=== PATIENT | female | born 1990 | race Caucasian/White ===

== ENCOUNTER 2017-05-08 08:00 | Outpatient (CLI) | payer MEDICAID, OTHER | END 2017-05-08 08:01 | disposition home or self-care (01) | LOC: LAB.R 08:00 | PROVIDERS: ATTEND Obstetrics & Gynecology | DX: Z36.9 Encounter for antenatal screening, unspecified (principal); Z11.3 Encounter for screening for infections with a predominantly sexual mode of transmission | CPT/HCPCS: 87491; 87591 ==

== ENCOUNTER 2017-06-03 07:44 | Outpatient (CLI) | payer OTHER ==
--- NOTE | 2017-06-03 13:41 | Ultrasound Report ---
OB ULTRASOUND: 06/03/2017 CLINICAL INDICATIONS: anatomy. TECHNIQUE: Real-time scanning was performed with career services representative static images obtained. LAST MENSTRUAL PERIOD --- Clinical Age --- US Age 21 weeks 3 days EFW Hadlock 433 g EFW% Hadlock --- Heart Rate 159 bpm EDC --- US EDC 10/11/2017 BPD Hadlock 21 weeks 0 days; Mean mm 49.4 HC Hadlock 20 weeks 2 days; Mean mm 194.9 AC Hadlock 19 weeks 5 days; Mean mm 168.0 FL Hadlock 21 weeks 2 days; Mean mm 35.7 Presentation cephalic Placental Location anterior Cervical Length 4.2 cm Amniotic Fluid 5.9 cm FINDINGS: There is a single viable intrauterine gestation, in cephalic presentation. heart rate is 159 BPM. The placenta is anterior without evidence of previa. Amniotic fluid volume is subjectively normal, with a deepest pocket of 5.9 cm. By size, the fetus measures 21 weeks 3 days ( uncertain LMP). The following anatomic structures were visualized and appear normal: The intracranial contents, including the ventricles and posterior fossa; the lips and orbits; the spine; the heart, including 4 chamber view and outflow tracts, and diaphragm; the abdominal contents, including the stomach, the bilateral kidneys, and urinary bladder, as well as a normal 3 vessel cord insertion; 4 limbs. Note is made of mild right renal pelviectasis, measuring 4 mm. No free fluid or adnexal lesion is appreciated. IMPRESSION: SINGLE VIABLE INTRAUTERINE GESTATION, MEASURING 21 WEEKS 3 DAYS BY SIZE. MILD RIGHT RENAL PELVIECTASIS. OTHERWISE, NORMAL ANATOMIC SURVEY. TD: 06/03/2017 12:59 [facility]
== END 2017-06-03 07:45 | disposition home or self-care (01) ==
LOC: DI 07:44
PROVIDERS: ATTEND Obstetrics & Gynecology
DX: Z36.9 Encounter for antenatal screening, unspecified (principal)
CPT/HCPCS: 76811

== ENCOUNTER 2017-08-05 08:00 | Outpatient (CLI) | payer OTHER ==
[2017-08-05 19:24] LABS: BILIRUBIN,URINE NEGATIVE (NEGATIVE); GLUCOSE, URINE (UA) NEGATIVE (NEGATIVE); KETONES,URINE (UA) NEGATIVE (NEGATIVE); LEUKOCYTE ESTERASE, URINE TRACE (NEGATIVE); NITRITE,URINE NEGATIVE (NEGATIVE); OCCULT BLOOD,URINE NEGATIVE (NEGATIVE); PH,URINE 6.5 PH (5.0-7.5); PROTEIN,URINE NEGATIVE (NEGATIVE); UROBILINOGEN,URINE 0.2 (NORMAL) E.U./dL (NORMAL)
[2017-08-05 19:48] LABS: BASOPHILS # (AUTO) 0.1 10^3/uL (0.0-0.1); BASOPHILS % (AUTO) 0.5 %; EOSINOPHILS # (AUTO) 0.1 10^3/uL (0.0-0.7); EOSINOPHILS % (AUTO) 1.4 %; LYMPHOCYTES # (AUTO) 1.8 10^3/uL (1.5-3.5); LYMPHOCYTES % (AUTO) 17.1 %; MEAN CORPUSCULAR HEMOGLOBIN 29.1 pg (27.0-31.0); MEAN CORPUSCULAR HGB CONC 34.1 g/dL (32.0-36.0); MEAN CORPUSCULAR VOLUME 85.3 fL (81.0-99.0); MEAN PLATELET VOLUME 7.9 fL (7.9-10.8); MONOCYTES # (AUTO) 0.6 10^3/uL (0.0-1.0); MONOCYTES % (AUTO) 5.7 %; NEUTROPHILS % (AUTO) 75.3 %; PLT - PLATELET COUNT 256 10^3/uL (130-450); RED BLOOD COUNT 3.79 10^6/uL (4.20-5.40); RED CELL DISTRIBUTION WIDTH 13.3 % (12.0-15.0); WHITE BLOOD COUNT 10.7 x10^3/uL (4.8-10.8)
[2017-08-05 19:52] LABS: BACTERIA,URINE None Seen /HPF (None Seen); CLARITY,URINE CLEAR (CLEAR); RBC,URINE None Seen /HPF (0-5); SQUAMOUS EPITHELIAL CELL,UR RARE Squamous (<= Few)
[2017-08-06 10:39] LABS: HEPATITIS B SURFACE ANTIGEN NON-REACTIVE (NON-REACTIVE)
[2017-08-06 16:06] LABS: HIV AG/AB 4TH GEN NON-REACTIVE (NON-REACTIVE)
== END 2017-08-05 08:01 | disposition home or self-care (01) ==
LOC: LAB.N 08:00
PROVIDERS: ATTEND Obstetrics & Gynecology
DX: Z36.9 Encounter for antenatal screening, unspecified (principal); Z11.3 Encounter for screening for infections with a predominantly sexual mode of transmission
CPT/HCPCS: 36415; 81001; 81599; 85025; 86592; 86762; 86850; 86900; 86901; 87340; 87389

== ENCOUNTER 2017-08-07 11:11 | Outpatient (CLI) | payer OTHER ==
[2017-08-07 12:56] LABS: BILIRUBIN,URINE NEGATIVE (NEGATIVE); GLUCOSE, URINE (UA) NEGATIVE (NEGATIVE); KETONES,URINE (UA) TRACE mg/dL (NEGATIVE); LEUKOCYTE ESTERASE, URINE TRACE (NEGATIVE); NITRITE,URINE NEGATIVE (NEGATIVE); OCCULT BLOOD,URINE NEGATIVE (NEGATIVE); PH,URINE 7.5 PH (5.0-7.5); PROTEIN,URINE NEGATIVE (NEGATIVE); UROBILINOGEN,URINE 0.2 (NORMAL) E.U./dL (NORMAL)
[2017-08-07 12:59] LABS: CLARITY,URINE CLEAR (CLEAR)
[2017-08-07 13:15] LABS: RBC,URINE 0-5 /HPF (0-5); SQUAMOUS EPITHELIAL CELL,UR FEW Squamous (<= Few)
[2017-08-07 13:16] LABS: BACTERIA,URINE Rare /HPF (None Seen)
--- NOTE | 2017-08-07 13:39 | Ultrasound Report ---
OB FOLLOWUP: 08/07/2017 CLINICAL INDICATION: Check growth, history of labor. TECHNIQUE: Real-time scanning was performed with traffic workforce representative static images obtained. LAST MENSTRUAL PERIOD: 01/04/2017 Clinical Age: 30 weeks 5 days US Age: 30 weeks 0 days EFW Hadlock: 1429 grams EFW% Hadlock: -- Heart Rate: 130 bpm EDC: 10/11/2017 US EDC: 10/16/2017 BPD Hadlock: 30 weeks 6 days; Mean mm 77 HC Hadlock: 31 weeks 0 days; Mean mm 283 AC Hadlock: 30 weeks 2 days; Mean mm 261 FL Hadlock: 28 weeks 0 days; Mean mm 53 Presentation: cephalic Placental Location: anterior Cervical Length: 4.1 cm Amniotic Fluid: DAGMAR 19.2 cm; MVP 6.4 cm FINDINGS: There is a single viable intrauterine gestation, in cephalic presentation. heart rate is 130 BPM. The placenta is anterior, without evidence of previa. Amniotic fluid volume is normal, with an DAGMAR 19.2. By size, the fetus measures 30 weeks 0 days (30 weeks 5 days by previous sonogram). Estimated weight by Hadlock method is 1429 grams. The cervix measures 4.1 cm, and is closed. IMPRESSION: SINGLE VIABLE INTRAUTERINE GESTATION, WITH EXPECTED GROWTH FROM PREVIOUS SONOGRAM. NORMAL DAGMAR. TD: 08/07/2017 13:00 MTDD
== END 2017-08-07 11:12 | disposition home or self-care (01) ==
LOC: DI 11:11
PROVIDERS: ATTEND Obstetrics & Gynecology
DX: Z36.2 Encounter for other antenatal screening follow-up (principal); R82.99 Other abnormal findings in urine; O60.00 Preterm labor without delivery, unspecified trimester; Z11.3 Encounter for screening for infections with a predominantly sexual mode of transmission; Z36.89 Encounter for other specified antenatal screening
CPT/HCPCS: 76816; 81001; 82731; 87081; 87086; 87491; 87591

== ENCOUNTER 2017-08-07 16:01 | Outpatient (CLI) | payer OTHER | END 2017-08-07 16:02 | disposition home or self-care (01) | LOC: LAB.R 16:01 | PROVIDERS: ATTEND Obstetrics & Gynecology | DX: O60.00 Preterm labor without delivery, unspecified trimester (principal); Z11.3 Encounter for screening for infections with a predominantly sexual mode of transmission; Z36.89 Encounter for other specified antenatal screening | CPT/HCPCS: 82731; 87081; 87491; 87591 ==

== ENCOUNTER 2017-08-28 20:02 | Outpatient (CLI) | payer OTHER ==
[2017-08-28 20:40] LABS: BILIRUBIN,URINE NEGATIVE (NEGATIVE); GLUCOSE, URINE (UA) NEGATIVE (NEGATIVE); KETONES,URINE (UA) 40 mg/dL (NEGATIVE); LEUKOCYTE ESTERASE, URINE SMALL (NEGATIVE); NITRITE,URINE NEGATIVE (NEGATIVE); OCCULT BLOOD,URINE TRACE-INTA (NEGATIVE); PH,URINE 6.5 PH (5.0-7.5); PROTEIN,URINE NEGATIVE (NEGATIVE); UROBILINOGEN,URINE 0.2 (NORMAL) E.U./dL (NORMAL)
[2017-08-28 20:43] LABS: CLARITY,URINE CLEAR (CLEAR)
[2017-08-28 20:46] LABS: BACTERIA,URINE Many /HPF (None Seen); RBC,URINE 0-5 /HPF (0-5); SQUAMOUS EPITHELIAL CELL,UR MANY Squamous (<= Few)
[2017-08-28] MEDS ORDERED: LACTATED RINGERS 1,000 ML IV ONE (21:04)
[2017-08-28] MEDS ORDERED: TERBUTALINE 1 MG/ML VIAL SUBQ SCH (21:05)
--- NOTE | 2017-08-28 21:06 | PROVIDER PROGRESS NOTE ---
Subjective - Prog Note Date Prog Note Date: 08/28/17 Prog Note Time: 21:00 - Subjective Subjective: Anthony is a 27-year-old 3 para 04/28/2000 woman at 33 weeks 6 days gestation who reports regular and steadily mounting contractions beginning at 1600 this afternoon. 07 August exam 1 cm dilation and effacement 25-30% -2 station She is uncertain if there is leaking membranes but she reports no discharge. She has no fevers chills or UTI symptoms. In 2015 she had a 34 week delivery of a living female infant in [place]. Blood type O+ antibody negative; RPR nonreactive rubella reactive hepatitis B surface antigen negative HIV negative baseline urinalysis -07 August GBS negative GC chlamydia - Objective - Vital Signs/Intake & Output Vital Signs: Vital Signs x48h Temp Pulse Resp BP Pulse Ox 08/28/17 20:22 98.1 F 99 18 118/81 H 99 - Lab Results Other Labs: Lab Results x24hrs 08/28/17 Range/Units 20:15 Urine Color YELLOW Urine Clarity CLEAR (CLEAR) Urine pH 6.5 (5.0-7.5) PH Ur Specific [place] 1.020 (1.002-1.030) Urine Protein NEGATIVE (NEGATIVE) mg/dL Urine Glucose (UA) NEGATIVE (NEGATIVE) mg/dL Urine Ketones 40 H (NEGATIVE) mg/dL Urine Occult Blood TRACE-INTA (NEGATIVE) Urine Nitrite NEGATIVE (NEGATIVE) Urine Bilirubin NEGATIVE (NEGATIVE) Urine Urobilinogen 0.2 (NORMAL) (NORMAL) E.U./dL Ur Leukocyte Esterase SMALL H (NEGATIVE) Urine RBC 0-5 (0-5) /HPF Urine WBC 11-25 H (0-5) /HPF Ur Squamous Epith Cells MANY Squamous H (<= Few) Urine Bacteria Many H (None Seen) /HPF Urine Culture Comments NOT INDICATED Exam - Vital Signs Vital Signs: Vital Signs x48h Temp Pulse Resp BP Pulse Ox 08/28/17 20:22 98.1 F 99 18 118/81 H 99 - Physical Exam General Appearance: positive: No acute distress, Anxious Eyes Bilateral: positive: Normal inspection, No scleral icterus ENT: positive: Dry mucous membranes Neck: positive: Nml inspection Abdomen: positive: Non-tender, No organomegaly, No distention, Other (Uterus normal resting tone very mild Q3 minute contractions external monitor shows every 3 minute contractions 1 strip) Skin: positive: Color nml Extremities: positive: No pedal edema Neurologic/Psychiatric: positive: Oriented x3, CN's nml (2-12), Motor nml, Sensation nml, Mood/affect nml Assess/Plan - Additional Planning My Orders: My Active Orders 08/28/17 RUPTURE OF MEMBRANES PLUS Stat 08/28/17 20:40 BV/VAGINITIS PANEL DNA PROBE [REFLAB] Routine 08/28/17 21:04 Lactated Ringers [Lr] 1,000 ml IV ONCE 08/28/17 21:05 Terbutaline 0.25 mg SUBQ ONCE ONE Assessment/Plan - Assessment/Plan Assessment: Patient is a 33 weeks and 6 days gestation with regular mounting in intensity contractions. There is no uterine tenderness or symptoms suggestive of infection. baseline heartbeat is normal not tachycardic. Delivery of pregnancies under 34 weeks of gestation is not permitted unless unavoidable at [facility][1]. Given the cervical exam early delivery i.e. within the next day is not likely however she may deliver before 36 weeks. She is a candidate for steroids Plan: Plan * Begin aggressive Tocolysis with fluid bolus and subcu terbutaline 0.25 mg every 20 minutes for 3 doses max. * May consider nifedipine later. * Betamethasone 12 mg now and in 24 hours. * If tocolyse this is unsuccessful will transfer to [facility] for delivery. * If Toca lysis is successful discharge to home with repeat beta L Methasone tomorrow evening
[2017-08-28] MEDS ORDERED: BETAMETHASONE 30 MG/5 ML VIAL ONE (21:18)
[2017-08-28] MEDS ORDERED: SODIUM CHLORIDE FLUSH 0.9% 10 ML SYRINGE ONE (21:20)
[2017-08-28] MEDS ORDERED: BETAMETHASONE 30 MG/5 ML VIAL IM ONE (21:30)
[2017-08-28 22:28] LABS: BASOPHILS # (AUTO) 0.1 10^3/uL (0.0-0.1); BASOPHILS % (AUTO) 0.6 %; EOSINOPHILS # (AUTO) 0.1 10^3/uL (0.0-0.7); EOSINOPHILS % (AUTO) 0.9 %; HGB - HEMOGLOBIN 11.1 g/dL (12.0-16.0); LYMPHOCYTES # (AUTO) 2.2 10^3/uL (1.5-3.5); LYMPHOCYTES % (AUTO) 19.7 %; MEAN CORPUSCULAR HEMOGLOBIN 28.5 pg (27.0-31.0); MEAN CORPUSCULAR HGB CONC 33.4 g/dL (32.0-36.0); MEAN CORPUSCULAR VOLUME 85.1 fL (81.0-99.0); MEAN PLATELET VOLUME 7.9 fL (7.9-10.8); MONOCYTES # (AUTO) 0.9 10^3/uL (0.0-1.0); MONOCYTES % (AUTO) 7.6 %; NEUTROPHILS % (AUTO) 71.2 %; PLT - PLATELET COUNT 248 10^3/uL (130-450); RED CELL DISTRIBUTION WIDTH 12.9 % (12.0-15.0); WHITE BLOOD COUNT 11.3 x10^3/uL (4.8-10.8)
[2017-08-28] MEDS ORDERED: MORPHINE 10 MG/ML VIAL IM ONE (22:37)
[2017-08-28] MEDS ORDERED: PROMETHAZINE 25 MG/1 ML VIAL IM ONE (22:38)
[2017-08-28 22:49] LABS: RUPTURE OF MEMBRANES PLUS NEGATIVE (NEGATIVE)
[2017-08-28] MEDS ORDERED: TERBUTALINE 1 MG/ML VIAL SUBQ ONE (22:49)
[2017-08-29 00:21] VITALS: BP 111/67
== END 2017-08-28 23:25 | disposition home or self-care (01) ==
LOC: WFO 20:02 → FBP 20:04 → WFO 23:25
PROVIDERS: ATTEND Obstetrics & Gynecology
DX: O09.213 Supervision of pregnancy with history of pre-term labor, third trimester (principal); Z3A.33 33 weeks gestation of pregnancy; O47.03 False labor before 37 completed weeks of gestation, third trimester
CPT/HCPCS: 81001; 84112; 85025; 87480; 87510; 87660; 96372; 99214; J7120; 87086

== ENCOUNTER 2017-08-29 20:44 | Outpatient (CLI) | payer OTHER ==
[2017-08-29 21:11] VITALS: BP 108/72
[2017-08-29] MEDS ORDERED: BETAMETHASONE 30 MG/5 ML VIAL IM SCH (21:30)
== END 2017-08-29 21:55 | disposition home or self-care (01) ==
LOC: WFO 20:44 → FBP 20:56 → WFO 21:55
PROVIDERS: ATTEND Obstetrics & Gynecology
DX: O36.8130 Decreased fetal movements, third trimester, not applicable or unspecified (principal); Z3A.34 34 weeks gestation of pregnancy; O47.03 False labor before 37 completed weeks of gestation, third trimester
CPT/HCPCS: 96372; 99212

== ENCOUNTER 2017-09-01 17:14 | Outpatient (CLI) | payer OTHER ==
[2017-09-01 17:37] VITALS: BP 122/89
[2017-09-01 17:39] LABS: BILIRUBIN,URINE NEGATIVE (NEGATIVE); GLUCOSE, URINE (UA) NEGATIVE (NEGATIVE); KETONES,URINE (UA) TRACE mg/dL (NEGATIVE); LEUKOCYTE ESTERASE, URINE TRACE (NEGATIVE); NITRITE,URINE NEGATIVE (NEGATIVE); OCCULT BLOOD,URINE NEGATIVE (NEGATIVE); PH,URINE 6.5 PH (5.0-7.5); PROTEIN,URINE NEGATIVE (NEGATIVE); UROBILINOGEN,URINE 0.2 (NORMAL) E.U./dL (NORMAL)
[2017-09-01 17:58] LABS: BACTERIA,URINE Moderate /HPF (None Seen); CLARITY,URINE CLEAR (CLEAR); RBC,URINE 0-5 /HPF (0-5); SQUAMOUS EPITHELIAL CELL,UR MANY Squamous (<= Few)
[2017-09-01] MEDS ORDERED: TERBUTALINE 1 MG/ML VIAL SUBQ ONE (18:01)
[2017-09-01] MEDS ORDERED: LACTATED RINGERS 1,000 ML IV ONE ×2 (18:02→18:17)
[2017-09-01] MEDS ORDERED: SODIUM CHLORIDE FLUSH 0.9% 10 ML SYRINGE ONE (18:17)
--- NOTE | 2017-09-01 18:56 | PROVIDER PROGRESS NOTE ---
Subjective - Prog Note Date Prog Note Date: 09/01/17 Prog Note Time: 19:00 - Subjective Subjective: Anthony is a 27-year-old 3 para 0202 woman at 34 weeks and 2 days gestation who presents complaining of regular contractions that began at 0930 today. The contractions progressed to every 5 minutes by noon and then every 3 minutes by 1500. She does not suspect leaking membranes. She reports good movement without signs or symptoms suggestive of preeclampsia. She reports no pelvic pressure. She has no fevers, chills, UTI symptoms or vaginal foul discharge. She had a similar episode on 3 M transfer text that was successfully tocolysed with terbutaline and IV fluids. She has a history of births at 34 and 36 weeks gestation. 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 Objective - Vital Signs/Intake & Output Vital Signs: Vital Signs x48h Temp Pulse Resp BP Pulse Ox 09/01/17 17:34 98.8 F 107 H 16 122/89 H 99 - Lab Results Other Labs: Lab Results x24hrs 09/01/17 Range/Units 17:30 Urine Color YELLOW Urine Clarity CLEAR (CLEAR) Urine pH 6.5 (5.0-7.5) PH Ur Specific [place] <=1.005 (1.002-1.030) Urine Protein NEGATIVE (NEGATIVE) mg/dL Urine Glucose (UA) NEGATIVE (NEGATIVE) mg/dL Urine Ketones TRACE (NEGATIVE) mg/dL Urine Occult Blood NEGATIVE (NEGATIVE) Urine Nitrite NEGATIVE (NEGATIVE) Urine Bilirubin NEGATIVE (NEGATIVE) Urine Urobilinogen 0.2 (NORMAL) (NORMAL) E.U./dL Ur Leukocyte Esterase TRACE H (NEGATIVE) Urine RBC 0-5 (0-5) /HPF Urine WBC 6-10 H (0-5) /HPF Ur Squamous Epith Cells MANY Squamous H (<= Few) Urine Bacteria Moderate H (None Seen) /HPF Urine Culture Comments NOT INDICATED Exam - Exam Vital Signs: Vital Signs (72 hours) 09/01/17 17:34 Temperature 98.8 F Heart Rate [ 107 H Radial] Respiratory 16 Rate Blood Pressure 122/89 H [Left Brachial artery] O2 Saturation 99 General: Alert, Oriented x3 HEENT: Mucous membr. moist/pink Abdomen: Normal bowel sounds, Other (Originally q. 5 minutes mild contractions; now uterus quiesced sent. External monitor category 1 140s moderate variability no D cells and no contractions. Cervical exam 1 cm 25% effaced unengaged same as baseline exam) Extremities: No edema Neurological: Normal speech Psych/Mental Status: Mental status NL, Mood NL Assessment/Plan - Assessment/Plan Assessment: Patient presented with uterine contractions without evident cervical change compared to her 3 august exam. fibronectin is negative. Her continued bouts of contractions is a concern. Plan: PLAN * Will finish IV bolus of 1000 cc. * One dose of terbutaline given second dose does not seem necessary. * Patient is already received one course of steroids. * She would probably benefit by a work excuse. Work excuse was written. * Patient is hydrating drinking several bottles of water per day. * Urinalysis changes probably reflect contamination therefore antibiotics were not prescribed * She will see Dr. Padilla tomorrow.
== END 2017-09-01 19:45 | disposition home or self-care (01) ==
LOC: WFO 17:14 → FBP 17:16 → WFO 19:45
PROVIDERS: ATTEND Obstetrics & Gynecology
DX: O09.213 Supervision of pregnancy with history of pre-term labor, third trimester (principal); O47.03 False labor before 37 completed weeks of gestation, third trimester; Z3A.34 34 weeks gestation of pregnancy
CPT/HCPCS: 81001; 82731; 96372; 99214; J7120; 87086

== ENCOUNTER 2017-09-11 15:26 | Outpatient (CLI) | payer OTHER | END 2017-09-11 23:59 | LOC: LAB.R 15:26 | PROVIDERS: ATTEND Obstetrics & Gynecology | DX: N89.8 Other specified noninflammatory disorders of vagina (principal) | CPT/HCPCS: 87480; 87510; 87660 ==

== ENCOUNTER 2017-09-13 16:20 | Outpatient (CLI) | payer OTHER ==
[2017-09-13 16:33] VITALS: BP 131/94
[2017-09-13] MEDS ORDERED: TERBUTALINE 1 MG/ML VIAL SUBQ SCH (17:12)
== END 2017-09-13 18:05 | disposition home or self-care (01) ==
LOC: WFO 16:20 → FBP 16:21 → WFO 18:05
PROVIDERS: ATTEND Obstetrics & Gynecology
DX: O47.03 False labor before 37 completed weeks of gestation, third trimester (principal); Z3A.36 36 weeks gestation of pregnancy
CPT/HCPCS: 96372; 99213

== ENCOUNTER 2017-09-14 11:48 | Outpatient (CLI) | payer OTHER | END 2017-09-14 11:49 | disposition critical access hospital (66) | LOC: EMS 11:48 | PROVIDERS: ATTEND Surgery | DX: O99.89 Other specified diseases and conditions complicating pregnancy, childbirth and the puerperium (principal) | CPT/HCPCS: A0425; A0427 ==

== ENCOUNTER 2017-09-14 12:09 | Inpatient (IN) | payer OTHER ==
[2017-09-14] MEDS ORDERED: OXYTOCIN/SODIUM CHLORIDE 500 ML IV ONE (12:27)
[2017-09-14] MEDS ORDERED: LACTATED RINGERS 1,000 ML IV ONE (12:27)
[2017-09-14] MEDS ORDERED: SODIUM CHLORIDE FLUSH 0.9% 10 ML SYRINGE ONE (12:28)
[2017-09-14] MEDS ORDERED: fent/BUPIV 2 MCG/0.125% 250 ML EP ONE (13:01)
[2017-09-14] MEDS ORDERED: METHYLERGONOVINE 0.2 MG/ML AMP ONE (13:03)
[2017-09-14] MEDS ORDERED: LIDOCAINE 1% 50 ML MDV ONE (13:03)
[2017-09-14 13:09] LABS: BASOPHILS # (AUTO) 0.1 10^3/uL (0.0-0.1); BASOPHILS % (AUTO) 0.5 %; EOSINOPHILS # (AUTO) 0.1 10^3/uL (0.0-0.7); EOSINOPHILS % (AUTO) 0.6 %; HGB - HEMOGLOBIN 11.4 g/dL (12.0-16.0); MEAN CORPUSCULAR HEMOGLOBIN 29.3 pg (27.0-31.0); MEAN CORPUSCULAR HGB CONC 34.7 g/dL (32.0-36.0); MEAN CORPUSCULAR VOLUME 84.5 fL (81.0-99.0); MEAN PLATELET VOLUME 7.3 fL (7.9-10.8); MONOCYTES # (AUTO) 0.7 10^3/uL (0.0-1.0); MONOCYTES % (AUTO) 6.9 %; NEUTROPHILS # (AUTO) 7.6 10^3/uL (1.5-6.6); PLT - PLATELET COUNT 240 10^3/uL (130-450); RED BLOOD COUNT 3.88 10^6/uL (4.20-5.40); RED CELL DISTRIBUTION WIDTH 12.7 % (12.0-15.0); WHITE BLOOD COUNT 10.4 x10^3/uL (4.8-10.8)
--- NOTE | 2017-09-14 14:15 | HISTORY & PHYSICAL EXAMINATION ---
Admit History - Instructions [place]/Slash: -Left hand click circles element as positive or present. -Right hand click slashes element as negative or not present. - Visit Reason Visit Reason: Contractions (Pt has had contractions thruout this pregnency with multipul visits to L&D. She has recieved betamethazone for lung maturity. Pt was in last night wiht contractions), Membranes rupture (Pt SROM at 1130 this AM) - : 3 Parity: 1 Premature: 1 Ectopic: 0 : 0 Care: positive: [facility] (Pt has had 9 visits. corse was complicated with contraction. she has had one delivery at 34 weeks. Pt was seen last night with contractions. recieved) Risk/History: positive: labor <37 weeks (multipul visits to L& D for contractions. recieved terbutaline.) Complications This : positive: Other (contractions) Smoking Status: Current every day smoker - Mother's Labs Mother's Blood Type: positive: O Mother's RH: positive: Positive GBS: positive: Group B Step Negative Rubella Status: positive: Immune Meds/Allgy - Home Medications Home Medications: Ambulatory Orders Medication Instructions Recorded Confirmed HYDROcod/ACETAM 5/325 [[place] 5/325] 1 - 2 ea PO Q6H PRN #15 tablet 05/21/15 - Allergies Allergies/Adverse Reactions: Allergies Allergy/AdvReac Type Severity Reaction Status Date / Time venom-honey bee Allergy Severe Respiratory Verified 10/14/12 17:53 amoxicillin trihydrate * Allergy Intermediate Hives Verified 10/14/12 17:44 [From Augmentin] Penicillins Allergy Intermediate Hives Verified 10/31/12 11:26 potassium clavulanate * Allergy Intermediate Hives Verified 10/14/12 17:44 [From Augmentin] honey AdvReac Severe Respiratory Verified 10/14/12 17:54 tramadol AdvReac Intermediate Nausea Verified 10/14/12 17:47 Review of Systems - Constitutional Constitutional: denies: Fatigue, Fever - Eyes Eyes: denies: Pain Physical - Abdominal Exam Vital Signs: Temp Pulse Resp BP Pulse Ox 36.6 C 73 18 114/81 H 100 09/14/17 12:25 09/14/17 12:25 09/14/17 12:25 09/14/17 12:25 09/14/17 12:25 Contraction Frequency (min/apart): 3 Contraction Intensity: positive: Moderate to strong - Monitoring Heart Rate Baseline: 140 with early decelerations to the 60 Strip Review: positive: Category II - Presentation Presentation: positive: Vertex - Vaginal Exam Membranes: positive: Membranes ruptured Dilation (in cm): 7 Effacement (%): 90% Station: positive: 0 Cervical Position: positive: Midposition - Speculum Exam Speculum Exam Performed: positive: No Findings: positive: Gross leak Plan for Labor - Plan For Labor I expect patient to be DC'd or transferred within 96 hours.: No Plan for Labor: Pt is a 27 yo 36.1 by early exam and US. SROM with light Mech. Actively laboring with Hx of rapid delivery. Peds contacted and will be here for delivery. Pt requests an Epidural. Anticipate vaginal delivery.
--- NOTE | 2017-09-14 14:31 | DELIVERY NOTE ---
Delivery Note - Labor Labor: positive: Spontaneous - Delivery Method Delivery Method: positive: Spontaneous vaginal delivery - Presentation Presentation: positive: Vertex, OA - occiput anterior - Nuchal Cord Nuchal Cord: positive: None (cord tightly wounded) - Anesthetic Anesthetic Type: Anesthetic: positive: Bupivicaine - 0.25% plain - Amniotic Fluid Description Amniotic Fluid Description: positive: Light meconium - Episiotomy Type Episiotomy Type: positive: None - Laceration Laceration: positive: None - Delivery Outcome Delivery Outcome: positive: Livebirth (live female, Apgars 8/9, Weight 4 lb 14 oz.) - [place]: positive: Placed in direct skin contact with mother, Bulb syringe, Stimulated, Warmed, [place] used sex: positive: Female - Cord Cord: positive: 3 vessels - Placenta Placenta: positive: Intact, Spontaneous (circumvallate Placenta, Tightly wound cord.) - Estimated Blood Loss Estimated Blood Loss (in cc): 100 - Post Delivery Events Post Delivery Events: positive: No post delivery events - Delivery Comments (Free Text/Narrative) Delivery Comments (Free Text/Narrative): while at home pt SROM at about 1130. contractions picked up very soon there after. Pt [facility] the [facility] at 1205. initial check was cm. with a hx of rapid deliveries physician was summoned Pt progressed to 8-9 cm. per pt request an epidural was placed. Pt relaxed and reached complete at 1335. a short second stage of 5 min with deilvery at 1340. Live female OA delivered over an intact perneum. Apgars of 8/9 weight if 4lb 13.7 oz. third stage of 5 min led to a delivery of an intact circummvalate palcenta. total EBL 100 ml.
[2017-09-14] MEDS ORDERED: HYDROCORTISONE/PRAMOXINE 10 GM PR PRN (15:00)
[2017-09-14] MEDS ORDERED: diphenhydrAMINE 25 MG CAPSULE PO PRN (15:00)
[2017-09-14] MEDS ORDERED: OXYTOCIN/SODIUM CHLORIDE 250 ML IV ONE (15:00)
[2017-09-14] MEDS ORDERED: HYDROCORTISONE 1% CREAM 28 GM TUBE PR PRN (15:00)
[2017-09-14] MEDS ORDERED: ONDANSETRON 4 MG/2 ML VIAL IVP PRN (15:00)
[2017-09-14] MEDS ORDERED: WITCH HAZEL/GLYCERIN 1 EACH MED..PAD TOP PRN (15:00)
[2017-09-14] MEDS: ACETAMINOPHEN 500 MG TABLET PO SCH (15:57)
[2017-09-14] MEDS: IBUPROFEN 600 MG TABLET PO SCH ×2 (15:57→22:05)
[2017-09-14] MEDS: oxyCODONE 5 MG TABLET PO PRN (20:13)
[2017-09-14] MEDS: DOCUSATE SODIUM 100 MG CAPSULE PO SCH (21:34)
[2017-09-15] MEDS: ACETAMINOPHEN 500 MG TABLET PO SCH ×4 (00:01→23:59)
[2017-09-15] MEDS: IBUPROFEN 600 MG TABLET PO SCH ×4 (04:00→22:21)
[2017-09-15] MEDS: oxyCODONE 5 MG TABLET PO PRN ×4 (05:01→20:27)
[2017-09-15] MEDS: LACTATED RINGERS 1,000 ML IV SCH ×2 (05:43→16:30)
[2017-09-15] MEDS: SIMETHICONE CHEW 80 MG TABLET PO SCH ×4 (05:45→16:27)
--- NOTE | 2017-09-15 08:17 | PROVIDER PROGRESS NOTE ---
Subjective - Prog Note Date Prog Note Date: 09/15/17 Prog Note Time: 08:15 - Subjective Pt reports feeling: Improved (Pain 0-6. meds working. notes adiquit pain control) Objective - Vital Signs/Intake & Output Reviewed Vital Signs: Yes Vital Signs: Vital Signs x48h Temp Pulse Resp BP Pulse Ox 09/15/17 08:07 36.7 C 87 20 100 09/15/17 03:35 36.7 C 85 18 117/75 Intake & Output: Intake & Output 09/12/17 09/13/17 09/14/17 09/15/17 23:59 23:59 23:59 23:59 Intake Total 1300 500 Output Total 500 Balance 800 500 - Objective General Appearance: positive: No acute distress, Alert Respiratory: positive: Chest non-tender, No respiratory distress, Breath sounds nml Cardiovascular: positive: Regular rate & rhythm, No murmur, No gallop Abdomen: positive: Non-tender, No organomegaly, Mass (U-2) Skin: positive: Color nml, No rash, Warm Extremities: negative: Calf tenderness, Susan's sign/cords Neurologic/Psychiatric: positive: Oriented x3 - Lab Results Fish Bones: 09/14/17 13:00 Other Labs: Lab Results x24hrs 09/14/17 Range/Units 13:00 WBC 10.4 (4.8-10.8) x10^3/uL RBC 3.88 L (4.20-5.40) 10^6/uL Hgb 11.4 L (12.0-16.0) g/dL Hct 32.8 L (37.0-47.0) % MCV 84.5 (81.0-99.0) fL MCH 29.3 (27.0-31.0) pg MCHC 34.7 (32.0-36.0) g/dL RDW 12.7 (12.0-15.0) % Plt Count 240 (130-450) 10^3/uL MPV 7.3 L (7.9-10.8) fL Neut # 7.6 H (1.5-6.6) 10^3/uL Lymph # 2.0 (1.5-3.5) 10^3/uL [place] # 0.7 (0.0-1.0) 10^3/uL Eos # 0.1 (0.0-0.7) 10^3/uL Baso # 0.1 (0.0-0.1) 10^3/uL Absolute Nucleated RBC 0.00 x10^3/uL Nucleated RBC % 0.0 /100WBC Assessment/Plan - Problem List (1) (spontaneous vaginal delivery) Impression: Pt is progressing well. baby may need to stay.
[2017-09-15] MEDS: DOCUSATE SODIUM 100 MG CAPSULE PO SCH ×2 (09:01→20:27)
[2017-09-16] MEDS: IBUPROFEN 600 MG TABLET PO SCH ×2 (03:22→09:16)
[2017-09-16] MEDS: oxyCODONE 5 MG TABLET PO PRN ×2 (05:51→09:49)
--- NOTE | 2017-09-16 07:57 | PROVIDER PROGRESS NOTE ---
Subjective - Prog Note Date Prog Note Date: 09/16/17 Prog Note Time: 07:55 - Subjective Pt reports feeling: Improved (Pt is doing very well. breast feeding. requesting Tubal ligation. pain / pt notes adiquit pain control.) Objective - Vital Signs/Intake & Output Reviewed Vital Signs: Yes Vital Signs: Vital Signs x48h Temp Pulse Resp BP 09/16/17 05:44 36.5 C 52 L 16 118/85 H Intake & Output: Intake & Output 09/13/17 09/14/17 09/15/17 09/16/17 23:59 23:59 23:59 23:59 Intake Total 1300 500 Output Total 500 Balance 800 500 - Objective General Appearance: positive: No acute distress, Alert Respiratory: positive: Chest non-tender, No respiratory distress, Breath sounds nml Cardiovascular: positive: Regular rate & rhythm, No murmur, No gallop Abdomen: positive: Non-tender, No organomegaly, Nml bowel sounds, Mass (U-3) Extremities: negative: Calf tenderness, Susan's sign/cords - Lab Results Fish Bones: 09/14/17 13:00 Assessment/Plan - Problem List (1) (spontaneous vaginal delivery) Impression: Pt is doing well. baby is on bili lights. Discharge to home. Discharge medication motrin 600 mg oxycodone 5 mg. # 10. Reviewed contraception. Pt wants Tubal ligation breast feeding and mastitis.
[2017-09-16] MEDS: ACETAMINOPHEN 500 MG TABLET PO SCH (08:00)
[2017-09-16] MEDS: SIMETHICONE CHEW 80 MG TABLET PO SCH (08:02)
--- NOTE | 2017-09-16 08:02 | Discharge Plan ---
Discharge Plan Disposition: 01 Home, Self Care Condition: Good Diet: Regular Activity Restrictions: pelvic rest 6 wks Shower Restrictions: No Driving Restrictions: No (not while taking oxycodone) No Smoking: If you smoke, Please STOP! Call for help. Follow-up with: Nils Arellano MD [Provider Admit Priv/Credential] -
[2017-09-16 08:10] VITALS: BP 127/83
[2017-09-16] MEDS: DOCUSATE SODIUM 100 MG CAPSULE PO SCH (10:25)
--- NOTE | 2017-09-16 11:52 | Labor Flowsheet ---
Labor Flowsheet Datetime Report Generated by CPN: 09/16/2017 11:52 Datetime: 09/16/2017 07:51 VITAL SIGNS NBP Sys/Tracee/Mean (mmHg): 127 : 83 : 92 Pulse: 61 LaborFlag: Labor Datetime: 09/14/2017 13:54 SpO2 (%): 100 Datetime: 09/14/2017 13:40 UTERINE ACTIVITY Monitor Mode: External Frequency (min): 2-3 Quality: Strong Duration (sec): 40-60 Pattern: Normal: <= 5 Contractions in 10 Minutes Resting Tone (Palpate): Relaxed Contraction Comments: strong urge to push ASSESSMENT A Monitor Mode: Internal Scalp Electrode FHR Baseline Rate : 130 Variability: Moderate 6-25 bpm Accelerations: None Decelerations: Early Category: Category I Comments: FHR decels down to the 60-90s. pt started to push and delivered within 5 mins in second s tage. Datetime: 09/14/2017 13:38 STAGE 2 Pushing: No Urge to Push Pushing Position: Pushing with Contractions Pushing Progress: Descent with Pushing Datetime: 09/14/2017 13:35 VAGINAL EXAM Dilatation (cm): 10.0 Effacement (%): 100 Station: 2 Exam by: dr rm Vaginal Bleeding: Normal Show Cervix, Consistency: Soft Cervix, Position: Anterior Patient Care Comments: pt feeling more pressure Datetime: 09/14/2017 13:30 Monitor Interventions for UA: Anon Raices Adjusted FHR Baseline Changes: No Baseline Change Actions for Decelerations: Oxygen Applied; IV Bolus; Sterile Vaginal Exam; Provider Notified Datetime: 09/14/2017 13:17 Monitor Interventions for FHR: FSE Applied PATIENT CARE Oxygen Amount (LPM): 10 Oxygen Method: Non-Rebreather Datetime: 09/14/2017 13:14 Epidural Procedure: Loading Dose Epidural Procedure Other: Pump Started Datetime: 09/14/2017 13:01 PROCEDURE TIME OUT Procedure Verify: Correct Patient Identity; Correct Side and Site are Marked; Agreement on Procedur e to be Done; Correct Patient Position; Safety Precautions Based on Patient History or Medication Use ANESTHESIA Epidural Positioning: Sitting Datetime: 09/14/2017 12:51 COMMUNICATION Communication Comments: dr ambar smith
== END 2017-09-16 11:51 | disposition home or self-care (01) | DRG 775 ==
LOC: WFO 12:09 → FBP 12:11 → WFO 12:40 → FBP 12:41
PROVIDERS: ADMIT Obstetrics & Gynecology; ATTEND Obstetrics & Gynecology
PROC: 10E0XZZ Delivery of Products of Conception, External Approach (ICD-10-PCS; principal; 2017-09-14)
DX: O60.14X0 Preterm labor third trimester with preterm delivery third trimester, not applicable or unspecified (principal); Z3A.36 36 weeks gestation of pregnancy; Z37.0 Single live birth; O77.0 Labor and delivery complicated by meconium in amniotic fluid; O99.334 Smoking (tobacco) complicating childbirth; F17.200 Nicotine dependence, unspecified, uncomplicated; O43.113 Circumvallate placenta, third trimester; O69.89X0 Labor and delivery complicated by other cord complications, not applicable or unspecified; O62.3 Precipitate labor
CPT/HCPCS: 36415; 85025; 99212

== ENCOUNTER 2017-11-04 10:00 | Outpatient (CLI) | payer OTHER ==
[2017-11-04 13:34] LABS: BILIRUBIN,URINE NEGATIVE (NEGATIVE); GLUCOSE, URINE (UA) NEGATIVE (NEGATIVE); KETONES,URINE (UA) NEGATIVE (NEGATIVE); LEUKOCYTE ESTERASE, URINE NEGATIVE (NEGATIVE); NITRITE,URINE NEGATIVE (NEGATIVE); OCCULT BLOOD,URINE SMALL (NEGATIVE); PROTEIN,URINE NEGATIVE (NEGATIVE); UROBILINOGEN,URINE 0.2 (NORMAL) E.U./dL (NORMAL)
[2017-11-04 13:36] LABS: CLARITY,URINE CLEAR (CLEAR); HCG UR QUAL NEGATIVE
[2017-11-04 13:38] LABS: BASOPHILS # (AUTO) 0.1 10^3/uL (0.0-0.1); EOSINOPHILS # (AUTO) 0.2 10^3/uL (0.0-0.7); EOSINOPHILS % (AUTO) 2.3 %; HGB - HEMOGLOBIN 12.6 g/dL (12.0-16.0); LYMPHOCYTES # (AUTO) 2.3 10^3/uL (1.5-3.5); LYMPHOCYTES % (AUTO) 26.5 %; MEAN CORPUSCULAR HEMOGLOBIN 28.8 pg (27.0-31.0); MEAN CORPUSCULAR HGB CONC 32.8 g/dL (32.0-36.0); MEAN CORPUSCULAR VOLUME 87.7 fL (81.0-99.0); MEAN PLATELET VOLUME 7.6 fL (7.9-10.8); MONOCYTES # (AUTO) 0.6 10^3/uL (0.0-1.0); MONOCYTES % (AUTO) 6.7 %; NEUTROPHILS # (AUTO) 5.6 10^3/uL (1.5-6.6); NEUTROPHILS % (AUTO) 63.5 %; PLT - PLATELET COUNT 297 10^3/uL (130-450); RED BLOOD COUNT 4.39 10^6/uL (4.20-5.40); RED CELL DISTRIBUTION WIDTH 15.3 % (12.0-15.0); WHITE BLOOD COUNT 8.8 x10^3/uL (4.8-10.8)
== END 2017-11-04 10:01 | disposition home or self-care (01) ==
LOC: LAB.N 10:00
PROVIDERS: ATTEND Obstetrics & Gynecology
DX: R87.611 Atypical squamous cells cannot exclude high grade squamous intraepithelial lesion on cytologic smear of cervix (ASC-H) (principal); Z30.2 Encounter for sterilization
CPT/HCPCS: 36415; 81003; 81025; 85025

== ENCOUNTER 2017-11-05 09:25 | Day surgery (SDC) | payer OTHER ==
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
[~2017-11-05 09:25] MED LIST: LIDOCAINE 1%-EPI 1:100000 30 ML MDV ONE
[2017-11-05 09:39] LABS: HCG UR QUAL NEGATIVE
[2017-11-05] MEDS ORDERED: LACTATED RINGERS 1,000 ML IV ONE ×2 (09:53→12:49)
[2017-11-05] MEDS ORDERED: SCOPOLAMINE PATCH TOP ONE (10:02)
[2017-11-05] MEDS ORDERED: LIDOCAINE 1%-EPI 1:100000 20 ML MDV SUBQ ONE (11:41)
--- NOTE | 2017-11-05 12:03 | OPERATIVE REPORT ---
Operative Report - General Planned Procedure: Sterilization Pre-Op Diagnosis: Desires sterilization Procedure Performed: Bilateral salpingectomy Post Op Diagnosis: Same as above, foreign body found in vagina (not significant) - Procedure Note Primary Surgeon: Nils Munoz MD, F ACOG Anesthesia Provider: Rommel Patel MD Anesthesia Technique: General ET tube Pathology: 2 tubes sent to pathology, right tube marked with suture Estimated Blood Loss (mL): 1,000 Complications: None
[2017-11-05] MEDS ORDERED: PROPOFOL 200 MG/20 ML VIAL IVP ONE (12:17)
[2017-11-05] MEDS ORDERED: DEXAMETHASONE 4 MG/ML VIAL IVP ONE (12:17)
[2017-11-05] MEDS ORDERED: NEOSTIGMINE 1 MG/1 ML 10 ML MDV IVP ONE (12:17)
[2017-11-05] MEDS ORDERED: KETOROLAC 30 MG/ML VIAL IVP ONE (12:17)
[2017-11-05] MEDS ORDERED: fentaNYL 100 MCG/2 ML VIAL IVP ONE (12:17)
[2017-11-05] MEDS ORDERED: ROCURONIUM 50 MG/5 ML VIAL IVP ONE (12:17)
[2017-11-05] MEDS ORDERED: GLYCOPYRROLATE 1 MG/5 ML VIAL IVP ONE (12:17)
[2017-11-05] MEDS ORDERED: MIDAZOLAM 2 MG/2 ML VIAL IVP ONE (12:17)
[2017-11-05] MEDS ORDERED: ONDANSETRON 4 MG/2 ML VIAL IVP ONE (12:17)
[2017-11-05] MEDS ORDERED: ACETAMINOPHEN 1,000 MG/100 ML 100 ML IV ONE (13:06)
[2017-11-05] MEDS ORDERED: HYDROcod/ACETAM 5/325 MG TABLET ONE (13:32)
[2017-11-05 13:48] VITALS: BP 123/85
--- NOTE | 2017-11-05 15:10 | OPERATIVE REPORT ---
DATE OF SERVICE: 11/05/2017 Physician: Nils Munoz MD PREOPERATIVE DIAGNOSIS: Desires sterilization. POSTOPERATIVE DIAGNOSIS: Desires sterilization, small foreign body found in vagina (significant). PROCEDURE: Laparoscopic bilateral salpingectomy. SURGEON: Nils Munoz MD, FACOG ANESTHESIOLOGIST: Rommel Patel MD ANESTHESIA TECHNIQUE: General, ET tube placed. PATHOLOGY: Two tubes sent to Pathology, right tube marked with suture. ESTIMATED BLOOD LOSS: 10 mL IV FLUIDS: COMPLICATIONS: None. FINDINGS: During the vaginal prep, there was a small piece of material expelled. It did seem to be a foreign body, possibly fabric. Careful exam under anesthesia finds no further foreign bodies. Cervix has no cervicitis or lesions. Uterus is normal size, without irregularities. Tubes appeared to be open and fluffy. The ovaries appear to be functional. There is no evidence of endometriosis found. TECHNIQUE: Prior to beginning the surgery, I met the patient in the same-day surgery holding room. She confirmed that she strongly desires a tubal ligation. Appropriate documents were signed inclusive of [place] Medicaid Permit. The patient was brought to the operating room and placed in the supine position for administration of general anesthesia. She was uneventfully induced and intubated. She was moved to the low dorsal lithotomy position in [facility]. She was examined. Timeout briefing was done per protocol. HUMI uterine manipulator was placed uneventfully. The patient had recently voided, and therefore it was not felt that a catheter or Quispe was necessary. A small incision was placed under the umbilical skin fold. Using a 5 mm Visiport, uneventful abdominal entry was made. The abdomen was insufflated with CO2 gas at 12 mm of pressure. Under direct visualization, right and left lower quadrant 5 mm operating ports were placed. The pelvis was assessed. Reference photos. Beginning on the left side, the tube was grasped by the fimbria and elevated superior and slightly medially. LigaSure was then used to desiccate the mesosalpinx. The tube was folded back on itself, and so the division and desiccation proceeded from the cornual end of the tube. Care was taken not to encroach on the left ovarian vessels. Tube was removed intact. Next, the process was repeated uneventfully on the right-hand side. After the tube was removed, a marking suture was placed. Both operative sites were inspected and photographed to ensure complete hemostasis. At this point, the abdomen was desufflated of CO2 gas. Trocars were removed under direct visualization. Skin wounds were closed with interrupted 4-0 Monocryl subcuticular stitches. The wound in turn was dressed with Dermabond, and additional Marcaine with epinephrine was injected for comfort. Anesthesia was uneventfully reversed and the patient aroused. PROCEDURE: The patient was taken to the recovery room in good condition. Complete instructions and review of intraoperative events were made. Incision instructions were reviewed. She will see us in 2 weeks for a wound check. DISCHARGE MEDICATIONS: 1. Motrin 600 q.6 hours. 2. Lyons 5/325 q.4 hours p.r.n. breakthrough pain. 3. Colace 250 mg b.i.d. TD: 11/05/2017 12:23
== END 2017-11-05 09:26 | disposition home or self-care (01) ==
LOC: SDS 09:25
PROVIDERS: ATTEND Obstetrics & Gynecology
PROC: 0UT74ZZ Resection of Bilateral Fallopian Tubes, Percutaneous Endoscopic Approach (ICD-10-PCS; principal; 2017-11-05 10:30)
DX: Z30.2 Encounter for sterilization (principal); J45.990 Exercise induced bronchospasm; F17.200 Nicotine dependence, unspecified, uncomplicated; Z91.5 Personal history of self-harm; Z86.59 Personal history of other mental and behavioral disorders
CPT/HCPCS: 58661; 81025; A9270; J0131; J3490; J7120

== ENCOUNTER 2019-04-22 00:07 | Emergency (ER) | payer OTHER ==
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
--- NOTE | 2019-04-22 03:21 | XRAY Report ---
Reason: injury, tenderness, SOA Procedure Date: 04/22/2019 Accession Number: [id number] / [id number] Procedure: XR - Ribs w/PA Chest RT CPT Code: Final Report FULL RESULT: EXAM: RIGHT RIB RADIOGRAPHY EXAM DATE: 04/22/2019 03:14 AM. CLINICAL HISTORY: Injury, tenderness, SOA. COMPARISON: None. TECHNIQUE: 1 view of the chest and 2 views of the ribs. FINDINGS: Bones: Normal. No fracture or bone lesion. Lungs: No focal opacities. No pneumothorax. No pleural effusions. Mediastinum: Heart and mediastinal contours are unremarkable. Other: None. IMPRESSION: Normal chest and rib radiography. RADIA
--- NOTE | 2019-04-22 03:22 | XRAY Report ---
Reason: injury, tenderness Procedure Date: 04/22/2019 Accession Number: [id number] / [id number] Procedure: XR - Wrist 3 View RT CPT Code: Final Report FULL RESULT: EXAM: RIGHT WRIST RADIOGRAPHY EXAM DATE: 04/22/2019 02:57 AM. CLINICAL HISTORY: Injury, tenderness. COMPARISON: None. TECHNIQUE: 3 views. FINDINGS: Bones: Normal. No fractures or bone lesions. Joints: Normal. No subluxations. Soft Tissues: Normal. No soft tissue swelling. IMPRESSION: Normal wrist radiography. RADIA
[2019-04-22] MEDS ORDERED: LORazepam 0.5 MG TABLET PO STA (05:55)
[2019-04-22 06:02] VITALS: BP 126/84
== END 2019-04-22 06:02 | disposition home or self-care (01) ==
LOC: ED 00:07 → EEVIPCON 00:07 → ED 06:02
DX: T76.11XA Adult physical abuse, suspected, initial encounter (principal); S63.501A Unspecified sprain of right wrist, initial encounter; S20.219A Contusion of unspecified front wall of thorax, initial encounter; S20.221A Contusion of right back wall of thorax, initial encounter; S40.022A Contusion of left upper arm, initial encounter; S40.021A Contusion of right upper arm, initial encounter; Y07.03 Male partner, perpetrator of maltreatment and neglect; F17.200 Nicotine dependence, unspecified, uncomplicated
CPT/HCPCS: 71101; 73110; 99283; 99284; A9270

== ENCOUNTER 2019-08-06 10:16 | Emergency (ER) | payer OTHER ==
--- NOTE | 2019-08-06 11:08 | ED Physician Documentation ---
PD HPI DYSPNEA - Stated complaint Stated Complaint: POS C+ - Chief complaint Chief Complaint: Resp - History obtained from History obtained from: Patient - History of Present Illness Timing - onset: Yesterday Timing - onset during: Light activity Timing - details: Abrupt onset, Still present Inciting event(s): Other (has had some nasal congestion. Feeling of dyspnea yesterday/today. No cough per se. Feeling of some aches/chills today.). No: Out of meds Associated symptoms: Wheezing. No: Fever, Cough, Hemoptysis, Palpitations, Bilateral edema Similar symptoms before: Diagnosis (asthma/seasonal allergies, but not much of it the past 5 years.) Recently seen: Not recently seen Review of Systems Constitutional: reports: Chills, Myalgias. denies: Fever Nose: reports: Rhinorrhea / runny nose. 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 HEENT: Tonsil/Adenoidectomy - Present Medications Home Medications: Ambulatory Orders Medication Instructions Recorded Confirmed LORazepam [Lorazepam] 0.5 - 1 mg PO TID PRN #14 tablet 04/22/19 Albuterol Sulfate [Albuterol 2 puffs IH QID #1 hfa.aer.ad 08/06/19 Sulfate Hfa] Benzonatate [Tessalon Perle] 100 mg PO TID PRN #25 capsule 08/06/19 Cetirizine [ZyrTEC] 10 mg PO DAILY #15 tablet 08/06/19 dexAMETHasone [Decadron] 4 mg PO DAILY #5 tablet 08/06/19 - Allergies Allergies/Adverse Reactions: Allergies Allergy/AdvReac Type Severity Reaction Status Date / Time venom-honey bee Allergy Severe Respiratory Verified 04/22/19 00:18 amoxicillin trihydrate * Allergy Intermediate Hives Verified 04/22/19 00:18 [From Augmentin] Penicillins Allergy Intermediate Hives Verified 04/22/19 00:18 potassium clavulanate * Allergy Intermediate Hives Verified 04/22/19 00:18 [From Augmentin] honey AdvReac Severe Respiratory Verified 04/22/19 00:18 tramadol AdvReac Intermediate Nausea Verified 04/22/19 00:18 - Social History Does the pt smoke?: Yes Smoking Status: Current every day smoker Does the pt drink ETOH?: Yes Does the pt have substance abuse?: Yes - Immunizations Immunizations are current?: Yes PD ED PE NORMAL - Vitals Vital signs reviewed: Yes - General General: Alert and oriented X 3, No acute distress, Well developed/nourished - HEENT HEENT: Ears normal, Moist mucous membranes, Pharynx benign - Neck Neck: Supple, no meningeal sign, No adenopathy - Cardiac Cardiac: RRR, No murmur - Respiratory Respiratory: Clear bilaterally (with some prolonged expiratory phase. ) - Abdomen Abdomen: Soft, Non tender - Derm Derm: Normal color, Warm and dry, No rash - Extremities Extremities: No edema, No calf tenderness / cord - Neuro Neuro: Alert and oriented X 3, javascript programmer 2-12 intact, No motor deficit, No sensory deficit, Normal speech, Other Results - Vitals Vitals: Vital Signs - 24 hr 08/06/19 08/06/19 08/06/19 10:27 12:30 12:35 Temperature 36.8 C 36.6 C Heart Rate 86 85 65 Respiratory 16 16 18 Rate Blood Pressure 147/100 H 140/74 H O2 Saturation 100 100 08/06/19 13:12 Temperature 36.9 C Heart Rate 98 Respiratory 16 Rate Blood Pressure 145/89 H O2 Saturation 99 Oxygen O2 Source Room air - Rads (name of study) chest xray Radiology: Prelim report reviewed (no infiltrates nor acute process), See rad report PD MEDICAL DECISION MAKING - ED course Complexity details: re-evaluated patient (felt better with Albuter MDI. ), considered differential (consider COVID versus other URI, or could be allergy environmental, but that would be less likely with the recent fever. ), d/w patient Departure - Departure Disposition: 01 Home, Self Care Clinical Impression: Dyspnea Qualifiers: Dyspnea type: shortness of breath Qualified Code(s): R06.02 - Shortness of breath Upper respiratory infection Qualifiers: URI type: unspecified URI Qualified Code(s): J06.9 - Acute upper respiratory infection, unspecified Condition: Stable Record reviewed to determine appropriate education?: Yes Instructions: ED Dyspnea Shortness of Breath Prescriptions: Albuterol Sulfate [Albuterol Sulfate Hfa] 2 puffs IH QID #1 hfa.aer.ad Benzonatate [Tessalon Perle] 100 mg PO TID PRN #25 capsule PRN Reason: Cough Cetirizine [ZyrTEC] 10 mg PO DAILY #15 tablet dexAMETHasone [Decadron] 4 mg PO DAILY #5 tablet Comments: Your chest x-ray appears normal. This could be a viral illness. Your coronavirus test will result in 2 or 3 days. Otherwise it might be seasonal allergies with some asthma as well. Use the albuterol inhaler 2 puffs 4 times a day and extra times as needed for shortness of breath and cough. Decadron steroid daily for the next several days to help with inflammation associated with the reactive airways. Use Tessalon if needed for cough. Cough medicines are okay as well. Add cetirizine antihistamine daily for the next couple of weeks for allergies. Recheck if not improving well over the next few days and return if significant worsening breathing. Off work for the next few days pending how you feel and your COVID test. Forms: Activity restrictions Discharge Date/Time: 08/06/19 13:13
--- NOTE | 2019-08-06 12:06 | XRAY Report ---
Reason: cough/dyspnea Procedure Date: 08/06/2019 Accession Number: [id number] / [id number] Procedure: XR - Chest 1 View X-Ray CPT Code: 98710 Final Report FULL RESULT: EXAM: CHEST RADIOGRAPHY EXAM DATE: 08/06/2019 11:47 AM. CLINICAL HISTORY: Cough/dyspnea. COMPARISON: RIBS W/PA CHEST RT 04/22/2019 2:57 AM. TECHNIQUE: 1 view. FINDINGS: Lungs/Pleura: Interval diminished lung volumes. No focal opacities evident. No pleural effusion. No pneumothorax. Mediastinum: Within exam limitations, the cardiomediastinal contour is normal. Other: None. IMPRESSION: 1. Hypoinflation. 2. No definite acute abnormality of the chest. RADIA
[2019-08-06] MEDS ORDERED: BENZONATATE 100 MG CAPSULE PO STA (12:11)
[2019-08-06] MEDS ORDERED: DEXAMETHASONE 10 MG/ML VIAL PO STA (12:11)
[2019-08-06] MEDS ORDERED: CHERRY SYRUP 10 ML UDC PO ONE (12:11)
[2019-08-06] MEDS ORDERED: ALBUTEROL 1 PUFF INH STA (12:11)
[2019-08-06] MEDS ORDERED: CETIRIZINE 10 MG TABLET PO STA (12:11)
[2019-08-06 13:13] VITALS: BP 145/89
== END 2019-08-06 13:13 | disposition home or self-care (01) ==
LOC: ED 10:16
DX: J06.9 Acute upper respiratory infection, unspecified (principal); Z20.828 Contact with and (suspected) exposure to other viral communicable diseases
CPT/HCPCS: 71045; 87635; 94640; 94664; 99283; 99284; A9270; 81599

== ENCOUNTER 2019-08-13 13:56 | Emergency (ER) | payer OTHER ==
[2019-08-13] MEDS ORDERED: ALBUTEROL NEB 2.5 MG/3 ML INH STA (14:34)
[2019-08-13] MEDS ORDERED: predniSONE 20 MG TABLET PO STA (14:34)
[2019-08-13 14:49] LABS: BASOPHILS # (AUTO) 0.1 10^3/uL (0.0-0.1); BASOPHILS % (AUTO) 0.4 %; EOSINOPHILS # (AUTO) 0.2 10^3/uL (0.0-0.7); EOSINOPHILS % (AUTO) 1.3 %; HGB - HEMOGLOBIN 12.7 g/dL (12.0-16.0); LYMPHOCYTES # (AUTO) 3.4 10^3/uL (1.5-3.5); LYMPHOCYTES % (AUTO) 27.3 %; MEAN CORPUSCULAR HEMOGLOBIN 29.4 pg (27.0-31.0); MEAN CORPUSCULAR HGB CONC 32.3 g/dL (32.0-36.0); MEAN PLATELET VOLUME 8.7 fL (7.9-10.8); MONOCYTES # (AUTO) 0.8 10^3/uL (0.0-1.0); MONOCYTES % (AUTO) 6.6 %; NEUTROPHILS # (AUTO) 7.6 10^3/uL (1.5-6.6); NEUTROPHILS % (AUTO) 60.7 %; PLT - PLATELET COUNT 245 10^3/uL (130-450); RED BLOOD COUNT 4.32 10^6/uL (4.20-5.40); RED CELL DISTRIBUTION WIDTH 14.4 % (12.0-15.0); WHITE BLOOD COUNT 12.5 x10^3/uL (4.8-10.8)
--- NOTE | 2019-08-13 14:49 | ED Physician Documentation ---
History of Present Illness - Stated complaint Stated Complaint: SOA, BODY SWELLING/PX - Chief complaint Chief Complaint: General - History obtained from History obtained from: Patient - History of Present Illness Timing: Today Pain level max: 0 Pain level now: 0 - Additonal information Additional information: 29-year-old female states that she has had difficulty breathing recently. Was seen here about a week ago, negative coronavirus testing. She has been using her inhaler without relief. She states that her back is hurting and it hurts to take a deep breath. No recent travel. No recent immobilization. Worse with deep breathing, better with rest. No fevers. She does believe that the steroids helped. Denies any possibility of . She also feels that she has generalized swelling in her body, mainly in the head no difficulty eating or swallowing. 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 HEENT: Tonsil/Adenoidectomy - Present Medications Home Medications: Ambulatory Orders Medication Instructions Recorded Confirmed Albuterol Sulfate [Albuterol 2 puffs IH QID #1 hfa.aer.ad 08/06/19 Sulfate Hfa] Benzonatate [Tessalon Perle] 100 mg PO TID PRN #25 capsule 08/06/19 dexAMETHasone [Decadron] 4 mg PO DAILY #5 tablet 08/06/19 Acetaminophen [Tylenol] 650 mg PO Q6H PRN 08/13/19 08/13/19 Albuterol Sulf [Ventolin Hfa 1 - 2 puffs INH Q4HR PRN #1 inhaler 08/13/19 Inhaler] Cyclobenzaprine [Flexeril] 10 mg PO TID PRN #20 tablet 08/13/19 Ibuprofen [Ibu] 600 mg PO 08/13/19 Meloxicam [Mobic] 15 mg PO DAILY PRN #20 tablet 08/13/19 predniSONE [Deltasone] 10 mg PO [id number] #42 tab 08/13/19 - Allergies Allergies/Adverse Reactions: Allergies Allergy/AdvReac Type Severity Reaction Status Date / Time venom-honey bee Allergy Severe Respiratory Verified 08/13/19 14:02 amoxicillin trihydrate * Allergy Intermediate Hives Verified 08/13/19 14:02 [From Augmentin] Penicillins Allergy Intermediate Hives Verified 08/13/19 14:02 potassium clavulanate * Allergy Intermediate Hives Verified 08/13/19 14:02 [From Augmentin] honey AdvReac Severe Respiratory Verified 08/13/19 14:02 tramadol AdvReac Intermediate Nausea Verified 08/13/19 14:02 - Social History Does the pt smoke?: Yes Smoking Status: Current every day smoker Does the pt drink ETOH?: Yes Does the pt have substance abuse?: Yes - Immunizations Immunizations are current?: Yes PD ED PE NORMAL - Vitals Vital signs reviewed: Yes - General General: Alert and oriented X 3, No acute distress - HEENT HEENT: Ears normal, Moist mucous membranes, Pharynx benign - Neck Neck: Supple, no meningeal sign, Other (No crepitus.) - Cardiac Cardiac: RRR, Strong equal pulses - Respiratory Respiratory: No respiratory distress, Other (Mild wheezing bilaterally) - Derm Derm: Warm and dry, No rash - Extremities Extremities: No edema, No calf tenderness / cord - Neuro Neuro: Alert and oriented X 3 Results - Vitals Vitals: Vital Signs - 24 hr 08/13/19 08/13/19 08/13/19 14:02 14:34 16:24 Temperature 37.3 C 36.4 C L Heart Rate 108 H 91 93 Respiratory 18 16 12 Rate Blood Pressure 148/113 H 159/109 H O2 Saturation 99 99 Oxygen O2 Source Room air - Labs Labs: Laboratory Tests 08/13/19 08/13/19 14:42 14:42 WBC 12.5 H RBC 4.32 Hgb 12.7 Hct 39.3 MCV 91.0 MCH 29.4 MCHC 32.3 RDW 14.4 Plt Count 245 MPV 8.7 Neut # (Auto) 7.6 H Lymph # (Auto) 3.4 [place] # (Auto) 0.8 Eos # (Auto) 0.2 Baso # (Auto) 0.1 Absolute Nucleated RBC 0.00 Nucleated RBC % 0.0 Sodium 136 Potassium 3.4 L Chloride 98 L Carbon Dioxide 27 Anion Gap 11.0 BUN 23 H Creatinine 0.7 Estimated GFR (MDRD) 100 Glucose 100 Calcium 8.3 L Total Bilirubin 0.4 AST 38 ALT 26 Alkaline Phosphatase 76 Total Protein 6.7 Albumin 3.3 Globulin 3.4 Albumin/Globulin Ratio 1.0 Lipase 43 - Rads (name of study) CT chest Radiology: Prelim report reviewed, EMP read contemporaneously, See rad report (No acute abnormality. No pulmonary emboli) PD MEDICAL DECISION MAKING - ED course Complexity details: reviewed old records, reviewed results, re-evaluated patient, considered differential, d/w patient ED course: 29-year-old female presents the emergency department what appears to be an asthma exacerbation. We will place her on albuterol and steroids for home. She is well-appearing, nontoxic. Afebrile. No PE. No aortic dissection. No pneumothorax. Patient counseled regarding signs and symptoms for which I believe and urgent re-evaluation would be necessary. Patient with good understanding of and agreement to plan and is comfortable going home at this time This document was made in part using voice recognition software. While efforts are made to proofread this document, sound alike and grammatical errors may occur. Departure - Departure Disposition: 01 Home, Self Care Clinical Impression: Dyspnea Qualifiers: Dyspnea type: shortness of breath Qualified Code(s): R06.02 - Shortness of breath; R06.00 - Dyspnea, unspecified; R06.01 - Orthopnea Upper respiratory infection Qualifiers: URI type: unspecified URI Qualified Code(s): J06.9 - Acute upper respiratory infection, unspecified Condition: Good Instructions: ED Dyspnea Shortness of Breath Follow-Up: Your,doctor in 1 week [Other] Prescriptions: Albuterol Sulf [Ventolin Hfa Inhaler] 1 - 2 puffs INH Q4HR PRN #1 inhaler PRN Reason: Shortness Of Air/Wheezing Cyclobenzaprine [Flexeril] 10 mg PO TID PRN #20 tablet PRN Reason: Spasms Meloxicam [Mobic] 15 mg PO DAILY PRN #20 tablet PRN Reason: pain predniSONE [Deltasone] 10 mg PO [id number] #42 tab Comments: Return if you worsen. Follow-up with your doctor for further care. Your CT of the chest is normal. Your blood work does not show any significant abnormalities. We will place you on a another steroid taper. Do not drive or operate heavy machinery while taking the Flexeril.
[2019-08-13 15:06] LABS: ALBUMIN 3.3 g/dL (3.2-5.5); BILIRUBIN,TOTAL 0.4 mg/dL (0.2-1.0); CALCIUM 8.3 mg/dL (8.5-10.3); CREATININE 0.7 mg/dL (0.4-1.0); TOTAL PROTEIN 6.7 g/dL (6.7-8.2)
[2019-08-13] MEDS ORDERED: IOVERSOL 320 100 ML VIAL IVP ONE ×2 (15:06→15:51)
[2019-08-13 16:25] VITALS: BP 159/109
--- NOTE | 2019-08-13 16:41 | CT Report ---
Reason: dyspnea, back pain, possible PE Procedure Date: 08/13/2019 Accession Number: [id number] / [id number] Procedure: CT - ANGIO CHEST W/WO CPT Code: Final Report FULL RESULT: EXAM: CT ANGIOGRAM CHEST EXAM DATE: 08/13/2019 03:49 PM. CLINICAL HISTORY: Dyspnea, shortness of breath, back pain for 2 days, evaluate for PE. COMPARISON: CHEST 1 VIEW 08/06/2019 11:28 AM. TECHNIQUE: Routine helical imaging was performed through the chest in the pulmonary arterial phase. IV Contrast: OPTIRAY 320. Reconstructions: Coronal 3-D MIP reconstructions. Sagittal and coronal. In accordance with CT protocol optimization, one or more of the following dose reduction techniques were utilized for this exam: automated exposure control, adjustment of mA and/or KV based on patient size, or use of iterative reconstructive technique. FINDINGS: Pulmonary Arteries: Diagnostic quality: Adequate through the segmental arteries. No evidence for acute or chronic pulmonary emboli. RV/LV is within normal limits. There is no interventricular septal bowing. There is no reflux of contrast material in the IVC. Lungs/Pleura: No consolidation, ground glass, pleural effusion or pneumothorax. Patent airways. Scattered small subpleural nodules are of unlikely clinical significance. No mass. Mediastinum: The heart is normal in size. No pericardial effusion. No lymphadenopathy. Thoracic Aorta: Unremarkable. No dissection or aneurysm. Upper Abdomen: Unremarkable. Other: None. IMPRESSION: No pulmonary emboli. RADIA
[2019-08-13] MEDS ORDERED: KETOROLAC 30 MG/ML VIAL IVP STA (16:42)
== END 2019-08-13 17:13 | disposition home or self-care (01) ==
LOC: ED 13:56
DX: J06.9 Acute upper respiratory infection, unspecified (principal); R06.02 Shortness of breath; F17.200 Nicotine dependence, unspecified, uncomplicated
CPT/HCPCS: 36415; 71275; 80053; 83690; 85025; 94640; 96374; 99284; J7512; Q9967

== ENCOUNTER 2019-08-26 09:11 | Outpatient (CLI) | payer OTHER ==
[2019-08-26 13:27] LABS: BASOPHILS # (AUTO) 0.1 10^3/uL (0.0-0.1); BASOPHILS % (AUTO) 1.1 %; EOSINOPHILS # (AUTO) 0.3 10^3/uL (0.0-0.7); EOSINOPHILS % (AUTO) 3.1 %; HGB - HEMOGLOBIN 13.4 g/dL (12.0-16.0); LYMPHOCYTES # (AUTO) 1.9 10^3/uL (1.5-3.5); LYMPHOCYTES % (AUTO) 23.2 %; MEAN CORPUSCULAR HEMOGLOBIN 29.3 pg (27.0-31.0); MEAN CORPUSCULAR HGB CONC 31.8 g/dL (32.0-36.0); MEAN CORPUSCULAR VOLUME 91.9 fL (81.0-99.0); MEAN PLATELET VOLUME 8.9 fL (7.9-10.8); MONOCYTES # (AUTO) 0.8 10^3/uL (0.0-1.0); MONOCYTES % (AUTO) 9.5 %; NEUTROPHILS % (AUTO) 61.7 %; PLT - PLATELET COUNT 338 10^3/uL (130-450); RED BLOOD COUNT 4.58 10^6/uL (4.20-5.40); WHITE BLOOD COUNT 8.1 x10^3/uL (4.8-10.8)
[2019-08-26 13:35] LABS: RHEUMATOID FACTOR NEGATIVE (Negative)
[2019-08-26 13:56] LABS: ALBUMIN 3.7 g/dL (3.2-5.5); ALBUMIN/GLOBULIN RATIO 1.1 (1.0-2.2); ALKALINE PHOSPHATASE 75 IU/L (42-121); ALT ALANINE AMINOTRANSFERASE 33 IU/L (10-60); AST ASPARTATE AMINOTRANSFERASE 39 IU/L (10-42); BILIRUBIN,TOTAL 0.7 mg/dL (0.2-1.0); BUN - BLOOD UREA NITROGEN 11 mg/dL (6-20); CALCIUM 8.4 mg/dL (8.5-10.3); CARBON DIOXIDE - CO2 27 mmol/L (21-32); CHLORIDE 103 mmol/L (101-111); CREATININE 0.6 mg/dL (0.4-1.0); CRP - C-REACTIVE PROTEIN < 1.0 mg/dL (0-1.0); GLUCOSE 85 mg/dL (70-100); SODIUM 139 mmol/L (135-145); TOTAL PROTEIN 7.1 g/dL (6.7-8.2)
== END 2019-08-26 23:59 | disposition home or self-care (01) ==
LOC: LAB.WCP 09:11
PROVIDERS: ATTEND Family Medicine
DX: R60.9 Edema, unspecified (principal)
CPT/HCPCS: 36415; 80053; 84443; 84702; 85025; 85651; 86038; 86140; 86200; 86430

== ENCOUNTER 2019-09-22 14:46 | Outpatient (CLI) | payer OTHER ==
[2019-09-22] MEDS ORDERED: GADOBUTROL 7.5 MMOL/7.5 ML VIAL ONE (15:08)
[2019-09-22] MEDS ORDERED: GADOBUTROL 7.5 MMOL/7.5 ML VIAL IVP ONE (15:57)
--- NOTE | 2019-09-23 09:12 | MRI Report ---
Reason: PARESTHESIA Procedure Date: 09/22/2019 Accession Number: [id number] / [id number] Procedure: MRI - Brain W/WO CPT Code: Final Report FULL RESULT: EXAM: MRI BRAIN WITHOUT AND WITH CONTRAST EXAM DATE: 09/22/2019 04:05 PM. CLINICAL HISTORY: Paresthesias, numbness for the past 2 months, evaluate for demyelinating disease. COMPARISON: None. TECHNIQUE: Multiplanar, multisequence T1-weighted and fluid-sensitive MR sequences of the brain were performed before and after administration of intravenous contrast. Sequences optimized for routine evaluation. Other: None. IV Contrast: 7.5 cc Gadavist. Findings: Relevant images are indicated (image number, series number). There is no acute/subacute ischemic change in the brain. There is no hemorrhage, mass or midline shift. Basal cisterns, bilateral IACs, bilateral Meckel's caves are clear. Orbital contents unremarkable. Minimal inferior right maxillary sinus mucosal thickening. There are normal expected vascular flow voids of the major arteries, major draining veins. There is no cortical atrophy. The ventricles are not dilated. There are no suspicious marrow lesions. There is no white matter disease present. Pituitary, midbrain , craniocervical junction, limited upper cervical cord negative. 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 Impressions: 1. Unremarkable brain, orbits as described, postcontrast imaging negative. RADIA
== END 2019-09-22 14:47 | disposition home or self-care (01) ==
LOC: DI 14:46
PROVIDERS: ATTEND Family Medicine
DX: R20.2 Paresthesia of skin (principal)
CPT/HCPCS: 70553; A9585

== ENCOUNTER 2019-11-02 08:13 | Outpatient (CLI) | payer OTHER ==
[2019-11-02] MEDS ORDERED: GADOBUTROL 7.5 MMOL/7.5 ML VIAL ONE (08:23)
[2019-11-02] MEDS ORDERED: GADOBUTROL 7.5 MMOL/7.5 ML VIAL IVP ONE (10:12)
--- NOTE | 2019-11-02 10:41 | MRI Report ---
PROCEDURE: Thoracic Spine W/WO INDICATIONS: PARESTHESIA CONTRAST: IV CONTRAST: Gadavist ml: 7.5 TECHNIQUE: Noncontrast sagittal T1 spin echo and T2 fast spin echo, sagittal STIR, axial T1 and T2 fast spin ech o through the thoracic spine. After the administration of contrast, axial and sagittal T1 spin echo with fat saturation through the thoracic spine. COMPARISON: Correlation is made with cervical spine MRI 11/02/2019. Correlation is also made with br ain MRI 09/22/[address] 08/13/2019 FINDINGS: Image quality: Motion artifact is noted. Alignment and curvature: Mild dextroconvex scoliotic curvature is seen. Marrow: Marrow is of normal overall signal. No acute vertebral body compression fractures. Spinal cord: Visualized spinal cord is of normal signal and size, without abnormal enhancement. Paraspinous soft tissues: No paravertebral masses or abnormal enhancement. Miscellaneous: Central canal and foramina appear widely patent at all scanned levels. IMPRESSION: Unremarkable study, without an imaging explanation found for the patient's presenting symptoms. No abnormal enhancement can be seen. No spinal cord lesions are seen. No significant neuroforaminal or central canal narrowing can be seen. Reviewed by: Justin Marion MD on 11/02/2019 9:40 AM FABIAN Approved by: Justin Marion MD on 11/02/2019 9:40 AM FABIAN Station ID: [id number]
--- NOTE | 2019-11-02 10:49 | MRI Report ---
PROCEDURE: Cervical Spine W/WO INDICATIONS: PARESTHESIA CONTRAST: IV CONTRAST: Gadavist ml: 7.5 TECHNIQUE: Noncontrast sagittal T1 spin echo and T2 fast spin echo, sagittal STIR, sagittal PD fast spin echo, f oraminal oblique sagittal T2 fast spin echo, axial gradient echo or T2 fast spin echo through the cer vical spine. After the administration of contrast, sagittal and axial T1 spin echo with fat saturati on through the cervical spine. COMPARISON: Correlation is made with the accompanying thoracic spine MRI 11/02/2019. Correlation is also made with the brain MRI 09/22/2019. FINDINGS: Image quality: Excellent. Alignment and curvature: There is normal bony alignment. Marrow: Marrow demonstrates normal overall signal. Within the C5 vertebral body on the right side, there is a focus that demonstrates a stippled appearance with increased precontrast T1-weighted and T 2-weighted signal with mild increased STIR signal. On postcontrast imaging, there is increased enhanc ement seen within this vertebral body. There is minimal central compression deformity seen at this le beto, measuring 10-20%. Spinal cord: Visualized spinal cord is normal in size, without white matter lesions. No suspicious intramedullary enhancement. No cerebellar tonsillar herniation. Paraspinous soft tissues: No paravertebral masses or suspicious enhancement. C2-C3: Normal in appearance. C3-C4: No significant abnormality is seen. C4-C5: The disc height is well-preserved. There is loss of disc signal seen. Mild disc osteophyte c omplex is seen. Mild facet hypertrophy is seen. Mild bilateral neural foraminal narrowing is seen . No significant central canal narrowing is seen. C5-C6: The disc height is well-preserved. There is loss of disc signal seen. Mild disc osteophyte c omplex is seen. Mild bilateral neural foraminal narrowing is seen. There is moderate right-sided a nd mild left-sided neuroforaminal narrowing seen. No significant central canal narrowing can be seen. C6-C7: The disc height is well-preserved. There is loss of disc signal seen. Mild disc osteophyte c omplex is seen. There is mild left-sided and no significant right-sided neuroforaminal narrowing see n. No significant central canal narrowing is seen. C7-T1: Mild loss of disc height and disc signal are seen. Mild to moderate disc osteophyte complex i s seen. Mild to moderate bilateral neuroforaminal narrowing can be seen. No significant central canal narrowing is seen. IMPRESSION: Premature degenerative changes are seen, which are most prominent inferiorly. No abnormal spinal cord lesions are seen. 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 If clinically appropriate, a dedicated cervical spine CT could b e considered for further evaluation. No abnormal enhancement is seen elsewhere. Reviewed by: Justin Marion MD on 11/02/2019 9:47 AM FABIAN Approved by: Justin Marion MD on 11/02/2019 9:47 AM FABIAN Station ID: [id number]
== END 2019-11-02 08:14 | disposition home or self-care (01) ==
LOC: DI 08:13
PROVIDERS: ATTEND Family Medicine
DX: R20.2 Paresthesia of skin (principal); M25.78 Osteophyte, vertebrae
CPT/HCPCS: 72156; 72157; A9585

== ENCOUNTER 2021-08-20 10:36 | Emergency (ER) | payer MEDICAID, OTHER ==
--- NOTE | 2021-08-20 11:20 | XRAY Report ---
PROCEDURE: Elbow 3 View RT INDICATIONS: Trauma TECHNIQUE: 3 views of the elbow were acquired. COMPARISON: None FINDINGS: Bones: No acute fractures or dislocations. No suspicious bony lesions. Soft tissues: No substantial elbow joint effusion. No suspicious soft tissue calcifications. IMPRESSION: Right elbow without acute fracture or dislocation. If there is persistent clinical concern for a radiographically occult fracture, recommend immobilizat ion and repeat imaging in 10 to 14 days. Reviewed by: Neal Urbina MD on 08/20/2021 11:19 AM PDT Approved by: Neal Urbina MD on 08/20/2021 11:19 AM PDT Station ID: [id number]
--- NOTE | 2021-08-20 11:38 | ED Physician Documentation ---
PD HPI UPPER EXT INJURY - Stated complaint Stated Complaint: RT ARM INJ - Chief complaint Chief Complaint: Trauma Ext - History obtained from History obtained from: Patient - History of Present Illness Location: Right, Elbow Type of injury: Fall Where injury occurred: Street Timing - onset: Last night Timing - duration: Days (1) Timing - details: Abrupt onset, Still present Improved by: Rest, Immobilization Worsened by: Moving, Palpating Associated symptoms: Numbness (to 4th and 5th), Tingling. No: Weakness Similar symptoms before: Diagnosis (has broken both arms previously) Recently seen: Not recently seen - Additonal information Additional information: 31-year-old female was rollerblading with her children yesterday one of them fell over she went to pick them up and fell over backwards onto her right elbow. She has significant pain to the elbow and has improvement if she is not moving it she does have some numbness to the fourth and fifth digits and some reduced range of motion. She has a bruise to her tailbone as well but is able to sit. Review of Systems Constitutional: denies: Fever Nose: denies: Congestion Throat: denies: Sore throat Respiratory: denies: Cough GI: denies: Vomiting, Diarrhea PD PAST MEDICAL HISTORY - Past Medical History Cardiovascular: None Respiratory: Asthma Endocrine/Autoimmune: None GI: None : None HEENT: None Psych: None Musculoskeletal: None Derm: None - Past Surgical History Past Surgical History: Yes /[employer]: Tubal ligation HEENT: Tonsil/Adenoidectomy - Present Medications Home Medications: Ambulatory Orders Medication Instructions Recorded Confirmed Acetaminophen [Tylenol] 650 mg PO Q6H PRN 08/13/19 08/20/21 Albuterol Sulf [Ventolin Hfa 1 - 2 puffs INH Q4HR PRN #1 inhaler 08/13/19 08/20/21 Inhaler] Fluticasone Propionate [Flovent 1 puffs INH BID 08/20/21 08/20/21 Diskus] - Allergies Allergies/Adverse Reactions: Allergies Allergy/AdvReac Type Severity Reaction Status Date / Time venom-honey bee Allergy Severe Respiratory Verified 08/20/21 10:49 amoxicillin trihydrate * Allergy Intermediate Hives Verified 08/20/21 10:49 [From Augmentin] Penicillins Allergy Intermediate Hives Verified 08/20/21 10:49 potassium clavulanate * Allergy Intermediate Hives Verified 08/20/21 10:49 [From Augmentin] honey AdvReac Severe Respiratory Verified 08/20/21 10:49 tramadol AdvReac Intermediate Nausea Verified 08/20/21 10:49 - Social History Does the pt smoke?: Yes Smoking Status: Current every day smoker Does the pt drink ETOH?: Yes Does the pt have substance abuse?: Yes - Immunizations Immunizations are current?: Yes PD ED PE NORMAL - Vitals Vital signs reviewed: Yes (hypertensive ) - General General: Alert and oriented X 3, No acute distress, Well developed/nourished - HEENT HEENT: Atraumatic, PERRL, EOMI - Respiratory Respiratory: No respiratory distress - Back Back: No CVA TTP, Other (tenderness over the lower lumbo/sacral area with point tenderness without winching) - Derm Derm: Normal color, No rash - Extremities Extremities: Other (Examination of the right elbow reveals pain specifically over the ulnar notch and over the olecranon. She does have pain there to rotation of the arm she does not have pain over the radial head. She is able to flex and extend the elbow with pain.) - Neuro Neuro: paralegals 2-12 intact, Other (There is subjective decreased sensation over the right fourth and fifth digits consistent with the nerve contusion.) Eye Opening: Spontaneous Motor: Obeys Commands Verbal: Oriented GCS Score: 15 - Psych Psych: Normal mood, Normal affect Results - Vitals Vitals: Vital Signs - 24 hr 08/20/21 08/20/21 10:43 12:14 Temperature 36.2 C L Heart Rate 94 85 Respiratory 16 14 Rate Blood Pressure 136/107 H 132/93 H O2 Saturation 100 95 Oxygen O2 Source Room air - Rads (name of study) elbow Radiology: Prelim report reviewed (Impression: Right elbow without acute fracture or dislocation. If there is persistent clinical concern for radiographically occult fracture, recommend immobilization and repeat imaging in 10 to 14 days.), EMP read indepedently, See rad report Procedures - Splint (location) right elbow Splint applied by: Tech Type of splint: Fiberglass, Posterior Other: Patient tolerated well, No complications, Neurovascular intact, Good alignment, Sling provided PD MEDICAL DECISION MAKING - ED course Complexity details: reviewed results, re-evaluated patient, considered differential, d/w patient ED course: 31-year-old female with a fall while rollerblading has a contusion to her elbow she does have an anterior sail sign on the elbow radiographs and she is placed into a posterior splint and sling. She is instructed to follow-up with her primary in a week for reevaluation and consideration of second x-ray. I described to the patient the process of occult fracture being a possibility. I have also described the patient the expectation of the numbness to her fingers resolves over the next 3 to 5 days. I did examine the patient's tailbone with the nurse Mey present for x ray developer. The area is tender it is not exquisite there is no crepitance fracture is not suspected at this time. Departure - Departure Disposition: 01 Home, Self Care Clinical Impression: Sprain of right elbow Qualifiers: Encounter type: initial encounter Qualified Code(s): S53.401A - Unspecified sprain of right elbow, initial encounter Coccyx contusion Qualifiers: Encounter type: initial encounter Qualified Code(s): S30.0XXA - Contusion of lower back and pelvis, initial encounter Condition: Stable Instructions: ED Contusion Back, ED Sprain Elbow Follow-Up: MADELAINE LYLES MD [Primary Care Provider] - Comments: Anthony, today it looks like you have a sprain of your right elbow and the expectation is resolution within 2 weeks. We have put you into a posterior splint and a follow-up evaluation by your primary care doctor is recommended. There is a potential for occult fracture. There are findings on your x-ray concerning for this possibility. Do not forget to read to move your shoulder in a range of motion. If you continue to have excessive pain or pain gets worse in your tailbone have an x-ray done of this on your follow-up visit. The numbness to your fingers should improve over the next 2-3 days. Discharge Date/Time: 08/20/21 12:14
[2021-08-20 12:15] VITALS: BP 132/93
== END 2021-08-20 12:14 | disposition home or self-care (01) ==
LOC: ED 10:36
DX: S53.401A Unspecified sprain of right elbow, initial encounter (principal); S30.0XXA Contusion of lower back and pelvis, initial encounter; W18.39XA Other fall on same level, initial encounter; Y93.51 Activity, roller skating (inline) and skateboarding; F17.200 Nicotine dependence, unspecified, uncomplicated
CPT/HCPCS: 29105; 99282